=== PATIENT | female | born 1995 | race Caucasian/White ===

== ENCOUNTER 2017-05-11 04:04 | Emergency (ER) | payer MEDICAID ==
--- NOTE | 2017-05-11 04:47 | ED Physician Chart ---
ED Chief Complaint/HPI - Patient Information Date Seen:: 05/11/17 Time Seen:: 04:41 Chief Complaint:: Vaginal pain History of Present Illness:: Vaginal pain for 3 days, white discharge, itchiness, not much odor, right pelvic pain, fever, nausea, pink, peach vaginal bleeding. Painful sexual intercourse 5 days ago. Allergies:: Allergies Allergy/AdvReac Type Severity Reaction Status Date / Time No Known Allergies Allergy Verified 05/11/17 04:18 Vitals:: Vital Signs - 8 hr 05/11/17 04:10 Temp 98.3 F HR 88 RR 18 BP 131/72 O2 Sat % 97 ED Past Medical History - Past Medical History Past Medical History: PUD/GERD Social History: Non Smoker, No Alcohol, No Drug Use Surgical History: other (facial reconstruction) Family Medical History - Family Member Mother History Unknown: Yes ED Assessment - Assessment General Assessment: UTI Vaginosis ED Septic Shock - <6hrs of presentation: Vital Signs: Vital Signs - 8 hr 05/11/17 04:10 Temp 98.3 F HR 88 RR 18 BP 131/72 O2 Sat % 97 ED Discharge Plan - Patient Disposition Prescriptions: metroNIDAZOLE [Flagyl] 500 mg PO BID #14 tab Sulfamethoxazole/TMP [Bactrim Ds] 1 tab PO BID #10 tab Instructions: Bacterial Vaginosis, [id number]
[2017-05-11 05:14] LABS: URINE MICROSCOPIC INDICATED? YES; URINE SOURCE RANDOM
[2017-05-11 05:22] LABS: URINE BILIRUBIN NEGATIVE (NEGATIVE); URINE BLOOD TRACE (NEGATIVE); URINE GLUCOSE (UA) NEGATIVE (NEGATIVE); URINE KETONE NEGATIVE (NEGATIVE); URINE LEUKOCYTE ESTERASE MODERATE (NEGATIVE); URINE NITRATE NEGATIVE (NEGATIVE); URINE PROTEIN NEGATIVE (NEGATIVE); URINE UROBILINOGEN 0.2 E.U./dL (0.2 - 1.0)
[2017-05-11 05:31] LABS: URINE CLARITY HAZY (CLEAR); URINE COLOR YELLOW
[2017-05-11 05:32] LABS: URINE BACTERIA MODERATE /hpf (NONE SEEN); URINE EPITHELIAL CELLS MODERATE /lpf (FEW)
[2017-05-11] MEDS ORDERED: Sulfamethoxazole/TMP 800/160mg Tab PO SCH (09:00)
== END 2017-05-11 05:40 | disposition home or self-care (01) ==
LOC: ER 04:04
DX: N76.0 Acute vaginitis (principal); N39.0 Urinary tract infection, site not specified; K21.9 Gastro-esophageal reflux disease without esophagitis
CPT/HCPCS: 81001-TC; 81025-TC; 87086-90; Z7502